=== PATIENT | male | born 1945 | race Caucasian/White ===

== ENCOUNTER 2023-08-31 12:26 | Inpatient (IN) ==
[2023-08-31] MEDS: DILTIAZEM 25 MG/5 ML VIAL IV ONE ×2 (13:03→15:50)
[2023-08-31] MEDS: FUROSEMIDE 40 MG/4 ML VIAL IV ONE (13:04)
[2023-08-31 13:30] LABS: Hematocrit 45.1 % (40.1-51.0); Hemoglobin 14.6 g/dL (13.7-17.5); Mean Cell Volume 92.4 fL (80.0-100.0); Mean Corpuscular HGB Conc 32.4 g/dL (31.0-36.0); Mean Platelet Volume 11.3 fL (8.8-12.5); Platelet Count 196 K/mcL (140-440); RBC 4.88 M/mcL (4.63-6.08); Red Cell Distribution Width 13.9 % (11.5-14.5); WBC 10.2 K/mcL (4.5-11.0)
[2023-08-31 13:31] LABS: ALT/SGPT 62 U/L (<40); AST/SGOT 59 U/L (<40); Albumin 3.9 gm/dL (3.2-5.2); Albumin/Globulin Ratio 1.5 (1.0-2.3); Alkaline Phosphatase 114 U/L (39-117); Bilirubin,Total 1.4 mg/dL (0.1-1.0); Blood Urea Nitrogen 26 mg/dL (8-23); Calcium 8.9 mg/dL (8.6-10.4); Carbon Dioxide 20 mmol/L (22-30); Chloride 99 mmol/L (96-108); Globulin 2.6 gm/dL (2.2-3.7); Glomerular Filtration Rate 58; Glucose 131 mg/dL (70-105)
[2023-08-31 13:58] LABS: Eosinophils % (Manual) 1 % (0-7); Lymphocytes % 14 % (15-49); Monocytes % (Manual) 9 % (1-12); Platelet Estimate NORMAL (Normal); RBC Morphology NORMAL (Normal); Reactive Lymphocytes 3 % (0-2); Segmented Neutrophils % 73 % (38-78)
[2023-08-31] MEDS ORDERED: ONDANSETRON 4 MG/2 ML VIAL IV PRN (18:56)
[2023-08-31] MEDS ORDERED: POTASSIUM CHLORIDE 20 MEQ TABLET PO PRN (18:56)
[2023-08-31] MEDS ORDERED: IPRATROPIUM/ALBUTEROL 3 ML AMPUL.NEB NEB PRN (18:56)
[2023-08-31] MEDS: METOPROLOL TARTRATE 5 MG/5 ML VIAL IV PRN (19:14)
[2023-08-31] MEDS: METOLAZONE 2.5 MG TABLET PO ONE (19:29)
[2023-08-31] MEDS: DILTIAZEM 120 MG CAP.XL.24H PO SCH (19:29)
[2023-08-31] MEDS: DOCUSATE SODIUM 100 MG CAPSULE PO SCH (20:05)
[2023-08-31] MEDS: FUROSEMIDE 40 MG/4 ML VIAL IV SCH (20:05)
[2023-08-31] MEDS: METOPROLOL TARTRATE 50 MG TABLET PO SCH (20:05)
[2023-08-31] MEDS: 0.9 % SODIUM CHLORIDE 250 ML IV PRN (20:56)
[2023-08-31] MEDS: ESMOLOL 2,500 MG in PREMIX 1 BAG IV PRN (20:56)
[2023-08-31] MEDS: ESMOLOL 250 ML IV ONE (20:57)
[2023-09-01] MEDS: ESMOLOL 250 ML IV ONE ×3 (00:30→10:27)
[2023-09-01] MEDS: PREMIX 2 BAG IV ONE (04:56)
[2023-09-01] MEDS: PANTOPRAZOLE 40 MG PACKET PO SCH (08:34)
[2023-09-01] MEDS: APIXABAN 5 MG TABLET PO SCH (08:34)
[2023-09-01] MEDS ORDERED: ENOXAPARIN 40 MG/0.4 ML SYRINGE SQ SCH (09:00)
[2023-09-01 09:33] LABS: ALT/SGPT 49 U/L (<40); Albumin 3.3 gm/dL (3.2-5.2); Albumin/Globulin Ratio 1.4 (1.0-2.3); Alkaline Phosphatase 97 U/L (39-117); Bilirubin,Total 4.3 mg/dL (0.1-1.0); Blood Urea Nitrogen 28 mg/dL (8-23); Calcium 8.6 mg/dL (8.6-10.4); Carbon Dioxide 24 mmol/L (22-30); Chloride 97 mmol/L (96-108); Globulin 2.4 gm/dL (2.2-3.7); Glomerular Filtration Rate 58; Glucose 156 mg/dL (70-105); Phosphorous 4.1 mg/dL (2.5-4.5); Triglycerides 102 mg/dL (<150); Uric Acid 11.2 mg/dL (2.5-8.0)
[2023-09-01] MEDS: AMIODARONE 150 MG in DEXTROSE 5% IN WATER 50 ML IV ONE (10:26)
[2023-09-01] MEDS: ALBUMIN HUMAN 12.5 GM/50 ML VIAL IV ONE (13:29)
[2023-09-01] MEDS: TAMSULOSIN 0.4 MG CAPSULE PO SCH (20:18)
[2023-09-02 06:29] LABS: ALT/SGPT 39 U/L (<40); AST/SGOT 56 U/L (<40); Albumin 3.1 gm/dL (3.2-5.2); Albumin/Globulin Ratio 1.4 (1.0-2.3); Alkaline Phosphatase 91 U/L (39-117); Bilirubin,Direct 1.2 mg/dL (<0.3); Bilirubin,Total 2.3 mg/dL (0.1-1.0); Blood Urea Nitrogen 38 mg/dL (8-23); Calcium 8.2 mg/dL (8.6-10.4); Carbon Dioxide 26 mmol/L (22-30); Chloride 94 mmol/L (96-108); Globulin 2.2 gm/dL (2.2-3.7); Glomerular Filtration Rate 33; Glucose 119 mg/dL (70-105); Lactate Dehydrogenase 652 U/L (135-225); Phosphorous 4.1 mg/dL (2.5-4.5); Triglycerides 86 mg/dL (<150); Uric Acid 12.6 mg/dL (2.5-8.0)
[2023-09-02] MEDS: POTASSIUM CHLORIDE 20 MEQ TABLET PO PRN (08:24)
[2023-09-02] MEDS: AMIODARONE 360 MG in PREMIX 1 BAG IV SCH ×2 (08:55→14:39)
[2023-09-02] MEDS: AMIODARONE 360 MG/200 ML BAG IV ONE ×2 (08:55→14:39)
[2023-09-02] MEDS: MILRINONE LACTATE/D5W 20 MG in PREMIX 1 BAG IV SCH ×2 (10:06→11:01)
[2023-09-02] MEDS: MILRINONE LACTATE/D5W 100 ML IV ONE (10:08)
[2023-09-02] MEDS: ALBUMIN HUMAN 12.5 GM/50 ML VIAL IV SCH (11:00)
[2023-09-02] MEDS: DIGOXIN 500 MCG/2 ML AMPUL IV ONE ×2 (17:25→23:33)
[2023-09-02] MEDS: POTASSIUM CHLORIDE 20 MEQ TABLET PO ONE ×2 (17:29→20:00)
[2023-09-02] MEDS: 0.9 % SODIUM CHLORIDE 10 ML SYRINGE IV SCH (19:15)
[2023-09-02] MEDS: FUROSEMIDE 100 MG/10 ML VIAL IV ONE (19:59)
[2023-09-02] MEDS: ALBUMIN HUMAN 12.5 GM/50 ML VIAL IV ONE (20:00)
[2023-09-03] MEDS: AMIODARONE 360 MG/200 ML BAG IV ONE (02:20)
[2023-09-03] MEDS: MILRINONE LACTATE/D5W 100 ML IV ONE (04:46)
[2023-09-03] MEDS: DIGOXIN 500 MCG/2 ML AMPUL IV ONE (05:53)
[2023-09-03 06:50] LABS: ALT/SGPT 47 U/L (<40); AST/SGOT 53 U/L (<40); Albumin 3.1 gm/dL (3.2-5.2); Albumin/Globulin Ratio 1.3 (1.0-2.3); Alkaline Phosphatase 100 U/L (39-117); Bilirubin,Direct 0.9 mg/dL (<0.3); Bilirubin,Total 1.6 mg/dL (0.1-1.0); Blood Urea Nitrogen 36 mg/dL (8-23); Calcium 8.3 mg/dL (8.6-10.4); Carbon Dioxide 33 mmol/L (22-30); Chloride 91 mmol/L (96-108); Globulin 2.3 gm/dL (2.2-3.7); Glomerular Filtration Rate 38; Glucose 132 mg/dL (70-105); Lactate Dehydrogenase 507 U/L (135-225); Phosphorous 3.7 mg/dL (2.5-4.5); Triglycerides 87 mg/dL (<150); Uric Acid 13.9 mg/dL (2.5-8.0)
[2023-09-03] MEDS: FUROSEMIDE 40 MG/4 ML VIAL IV SCH (07:43)
[2023-09-03] MEDS: ATORVASTATIN 40 MG TABLET PO SCH (08:35)
[2023-09-03] MEDS: FUROSEMIDE 40 MG/4 ML VIAL IV ONE (08:35)
[2023-09-03] MEDS: ALBUMIN HUMAN 12.5 GM/50 ML VIAL IV ONE (08:35)
[2023-09-03] MEDS: POTASSIUM CHLORIDE 40 MEQ in DEXTROSE 5% IN WATER 500 ML IV PRN (09:00)
[2023-09-03 10:33] LABS: Basophils # (Auto) 0.02 K/mcL (0.00-0.30); Basophils % (Auto) 0.2 % (0.0-2.0); Eosinophils # (Auto) 0.02 K/mcL (0.00-0.70); Eosinophils % (Auto) 0.2 % (0.0-7.0); Hematocrit 41.9 % (40.1-51.0); Lymphocytes # (Auto) 1.18 K/mcL (1.50-4.80); Lymphocytes % (Auto) 11.1 % (15.5-49.0); Mean Corpuscular HGB Conc 33.4 g/dL (31.0-36.0); Mean Platelet Volume 11.8 fL (8.8-12.5); Monocytes # (Auto) 1.44 K/mcL (0.10-0.90); Monocytes % (Auto) 13.6 % (1.0-12.0); Neutrophils % (Auto) 74.5 % (38.0-78.0); Platelet Count 167 K/mcL (140-440); RBC 4.71 M/mcL (4.63-6.08); WBC 10.6 K/mcL (4.5-11.0)
[2023-09-03 13:43] LABS: Appearance,Urine Clear (Clear); Bilirubin,Urine Negative (Negative); Color,Urine Yellow; Culture Indicated,Urine No; Glucose,Urine (UA) Negative (Negative); Ketones,Urine Negative (Negative); Leukocyte Esterase,Urine Negative /uL (Negative); Nitrate,Urine Negative (Negative); PH,Urine 5.5 (5.0-9.0); Protein,Urine Negative (Negative); Urine Blood Large ery/mcL (Negative); Urine RBC 51 /hpf (0-3); Urine Squamous Epithelial Cell 0 /hpf (0-4); Urine WBC 0 /hpf (0-4); Urobilinogen,Urine Normal
[2023-09-03] MEDS: DIGOXIN 125 MCG TABLET PO SCH (13:56)
[2023-09-03] MEDS: METOPROLOL TARTRATE 25 MG TABLET PO ONE (14:30)
[2023-09-03] MEDS: AMIODARONE 150 MG in DEXTROSE 5% IN WATER 50 ML IV ONE (17:59)
[2023-09-03] MEDS: POTASSIUM CHLORIDE 20 MEQ TABLET PO ONE ×3 (19:27→22:09)
[2023-09-03] MEDS: POLYETHYLENE GLYCOL 3350 17 GM PACKET PO PRN (19:28)
[2023-09-03] MEDS: METOPROLOL TARTRATE 50 MG TABLET PO SCH (20:49)
[2023-09-03] MEDS: MAGNESIUM SULFATE 2 GM/50 ML BAG IV PRN (21:55)
[2023-09-03] MEDS: MAGNESIUM SULFATE 1 GM/100 ML BAG IV ONE (21:56)
[2023-09-03] MEDS: POTASSIUM CHLORIDE 20 MEQ in DEXTROSE 5% IN WATER 250 ML IV ONE (22:34)
[2023-09-03] MEDS: POTASSIUM CHLORIDE 20 MEQ/10 ML VIAL IV ONE (22:35)
[2023-09-04] MEDS: MILRINONE LACTATE/D5W 100 ML IV ONE (06:03)
[2023-09-04 06:38] LABS: ALT/SGPT 61 U/L (<40); AST/SGOT 67 U/L (<40); Albumin 3.1 gm/dL (3.2-5.2); Albumin/Globulin Ratio 1.3 (1.0-2.3); Alkaline Phosphatase 115 U/L (39-117); Bilirubin,Direct 1.3 mg/dL (<0.3); Bilirubin,Total 2.2 mg/dL (0.1-1.0); Blood Urea Nitrogen 30 mg/dL (8-23); Calcium 8.4 mg/dL (8.6-10.4); Carbon Dioxide 33 mmol/L (22-30); Chloride 89 mmol/L (96-108); Globulin 2.3 gm/dL (2.2-3.7); Glomerular Filtration Rate 53; Glucose 151 mg/dL (70-105); Lactate Dehydrogenase 442 U/L (135-225); Phosphorous 2.6 mg/dL (2.5-4.5); Triglycerides 81 mg/dL (<150); Uric Acid 13.4 mg/dL (2.5-8.0)
[2023-09-04 07:08] LABS: Digoxin 0.8 ng/mL
[2023-09-04] MEDS: ALBUMIN HUMAN 12.5 GM/50 ML VIAL IV ONE (07:40)
[2023-09-04] MEDS ORDERED: AMIODARONE 150 MG in DEXTROSE 5% IN WATER 50 ML IV PRN (10:17)
[2023-09-04] MEDS: AMIODARONE 150 MG in DEXTROSE 5% IN WATER 50 ML IV ONE (10:53)
[2023-09-04] MEDS: METOPROLOL TARTRATE 50 MG TABLET PO ONE ×2 (10:53→14:19)
[2023-09-04] MEDS: AMIODARONE 150 MG in DEXTROSE 5% IN WATER 50 ML IV PRN (16:17)
[2023-09-04] MEDS: METOPROLOL TARTRATE 50 MG TABLET PO SCH (20:30)
[2023-09-05 06:39] LABS: Digoxin 0.9 ng/mL
[2023-09-05 09:52] LABS: ALT/SGPT 53 U/L (<40); AST/SGOT 41 U/L (<40); Albumin 2.8 gm/dL (3.2-5.2); Albumin/Globulin Ratio 0.9 (1.0-2.3); Alkaline Phosphatase 119 U/L (39-117); Bilirubin,Direct 1.1 mg/dL (<0.3); Bilirubin,Total 2.3 mg/dL (0.1-1.0); Blood Urea Nitrogen 26 mg/dL (8-23); Calcium 8.8 mg/dL (8.6-10.4); Carbon Dioxide 33 mmol/L (22-30); Chloride 90 mmol/L (96-108); Globulin 3.1 gm/dL (2.2-3.7); Glomerular Filtration Rate 72; Glucose 114 mg/dL (70-105); Lactate Dehydrogenase 449 U/L (135-225); Phosphorous 2.6 mg/dL (2.5-4.5); Triglycerides 79 mg/dL (<150); Uric Acid 10.4 mg/dL (2.5-8.0)
[2023-09-05] MEDS: POTASSIUM CHLORIDE 20 MEQ TABLET PO SCH (10:26)
[2023-09-05] MEDS: SENNOSIDES 1 TABLET PO PRN (14:49)
[2023-09-05] MEDS: ACETAMINOPHEN 325 MG TABLET PO PRN (16:54)
[2023-09-05] MEDS: HYDROcodone/APAP 5/325MG TABLET PO PRN (20:59)
[2023-09-06 07:31] LABS: ALT/SGPT 84 U/L (<40); AST/SGOT 93 U/L (<40); Albumin 3.2 gm/dL (3.2-5.2); Albumin/Globulin Ratio 1.2 (1.0-2.3); Alkaline Phosphatase 129 U/L (39-117); Bilirubin,Direct 0.9 mg/dL (<0.3); Bilirubin,Total 1.8 mg/dL (0.1-1.0); Blood Urea Nitrogen 26 mg/dL (8-23); Calcium 9.2 mg/dL (8.6-10.4); Carbon Dioxide 33 mmol/L (22-30); Chloride 92 mmol/L (96-108); Globulin 2.7 gm/dL (2.2-3.7); Glomerular Filtration Rate 82; Glucose 122 mg/dL (70-105); Lactate Dehydrogenase 423 U/L (135-225); Phosphorous 2.1 mg/dL (2.5-4.5); Triglycerides 92 mg/dL (<150); Uric Acid 8.7 mg/dL (2.5-8.0)
[2023-09-06] MEDS: POTASSIUM CHLORIDE 20 MEQ TABLET PO SCH (10:18)
[2023-09-06] MEDS: FUROSEMIDE 20 MG TABLET PO SCH ×2 (12:18→13:17)
[2023-09-06] MEDS: LISINOPRIL 2.5 MG TABLET PO SCH (13:17)
[2023-09-07] MEDS: POTASSIUM CHLORIDE 20 MEQ TABLET PO SCH (07:29)
[2023-09-07 09:55] LABS: ALT/SGPT 105 U/L (<40); AST/SGOT 100 U/L (<40); Albumin 3.5 gm/dL (3.2-5.2); Albumin/Globulin Ratio 1.2 (1.0-2.3); Alkaline Phosphatase 158 U/L (39-117); Bilirubin,Total 2.1 mg/dL (0.1-1.0); Blood Urea Nitrogen 19 mg/dL (8-23); Calcium 9.1 mg/dL (8.6-10.4); Carbon Dioxide 31 mmol/L (22-30); Chloride 91 mmol/L (96-108); Glomerular Filtration Rate 82; Glucose 187 mg/dL (70-105); Lactate Dehydrogenase 421 U/L (135-225); Phosphorous 2.1 mg/dL (2.5-4.5); Triglycerides 99 mg/dL (<150); Uric Acid 7.2 mg/dL (2.5-8.0)
[2023-09-08 06:45] LABS: ALT/SGPT 115 U/L (<40); AST/SGOT 103 U/L (<40); Albumin 3.5 gm/dL (3.2-5.2); Albumin/Globulin Ratio 1.2 (1.0-2.3); Alkaline Phosphatase 162 U/L (39-117); Bilirubin,Total 2.1 mg/dL (0.1-1.0); Blood Urea Nitrogen 20 mg/dL (8-23); Carbon Dioxide 29 mmol/L (22-30); Chloride 92 mmol/L (96-108); Globulin 2.9 gm/dL (2.2-3.7); Glomerular Filtration Rate 86; Glucose 105 mg/dL (70-105); Lactate Dehydrogenase 472 U/L (135-225); Phosphorous 2.7 mg/dL (2.5-4.5); Triglycerides 90 mg/dL (<150); Uric Acid 6.8 mg/dL (2.5-8.0)
[2023-09-08 08:01] VITALS: TEMP 97.9
[2023-09-08] MEDS: LISINOPRIL 2.5 MG TABLET PO SCH (08:04)
[2023-09-08] MEDS: FUROSEMIDE 20 MG TABLET PO SCH (08:04)
[2023-09-08 10:32] VITALS: O2SAT 95
== END 2023-09-08 12:05 | DRG 291 ==
LOC: ED 12:26 → ICU 18:54
PROVIDERS: ADMIT Internal Medicine; ATTEND Internal Medicine

== ENCOUNTER 2024-06-22 21:37 | Inpatient (IN) ==
[2024-06-22 23:06] LABS: Basophils # (Auto) 0.03 K/mcL (0.00-0.30); Basophils % (Auto) 0.4 % (0.0-2.0); Eosinophils # (Auto) 0 K/mcL (0.00-0.70); Eosinophils % (Auto) 0 % (0.0-7.0); Hematocrit 45.4 % (40.1-51.0); Hemoglobin 14.6 g/dL (13.7-17.5); Lymphocytes # (Auto) 0.98 K/mcL (1.50-4.80); Lymphocytes % (Auto) 12.9 % (15.5-49.0); Mean Cell Volume 95.2 fL (80.0-100.0); Mean Corpuscular HGB Conc 32.2 g/dL (31.0-36.0); Mean Platelet Volume 10.9 fL (8.8-12.5); Neutrophils % (Auto) 65.6 % (38.0-78.0); Platelet Count 158 K/mcL (140-440); RBC 4.77 M/mcL (4.63-6.08); Red Cell Distribution Width 13.9 % (11.5-14.5); WBC 7.6 K/mcL (4.5-11.0)
[2024-06-22 23:10] LABS: ALT/SGPT 34 U/L (<40); AST/SGOT 48 U/L (<40); Albumin 3.6 gm/dL (3.2-5.2); Albumin/Globulin Ratio 1.2 (1.0-2.3); Alkaline Phosphatase 83 U/L (39-117); Bilirubin,Total 0.6 mg/dL (0.1-1.0); Blood Urea Nitrogen 23 mg/dL (8-23); Calcium 8.2 mg/dL (8.6-10.4); Carbon Dioxide 21 mmol/L (22-30); Chloride 103 mmol/L (96-108); Globulin 2.9 gm/dL (2.2-3.7); Glomerular Filtration Rate 64; Glucose 159 mg/dL (70-105); Potassium 3.7 mmol/L (3.3-5.1); Sodium 137 mmol/L (133-145)
[2024-06-23 03:05] LABS: Appearance,Urine HAZY (Clear); Bilirubin,Urine Negative (Negative); Color,Urine Yellow; Glucose,Urine (UA) Negative (Negative); Ketones,Urine Negative (Negative); Leukocyte Esterase,Urine Negative /uL (Negative); Mucus,Urine FEW /hpf; Nitrate,Urine Negative (Negative); Protein,Urine 30 mg/dL (Negative); Specific Gravity,Urine 1.021 (1.000-1.035); Urine Blood Negative (Negative); Urine Hyaline Cast 15 /lph (0-2); Urine RBC 1 /hpf (0-3); Urine Squamous Epithelial Cell 0 /hpf (0-4); Urine Transitional Epi Cells < 1 /hpf (0-2); Urine WBC 5 /hpf (0-4)
[2024-06-23] MEDS ORDERED: KETOROLAC 30 MG/ML VIAL IV PRN (03:26)
[2024-06-23] MEDS ORDERED: ONDANSETRON 4 MG/2 ML VIAL IV PRN ×2 (03:26→09:13)
[2024-06-23] MEDS: OSELTAMIVIR PHOSPHATE 75 MG CAPSULE PO ONE (04:00)
[2024-06-23] MEDS: 0.9 % SODIUM CHLORIDE 1,000 ML IV SCH ×2 (04:50→13:31)
[2024-06-23] MEDS: ACETAMINOPHEN 650 MG/65 ML BAG IV PRN (04:56)
[2024-06-23] MEDS: 0.9 % SODIUM CHLORIDE 10 ML SYRINGE IV SCH ×2 (07:25→14:26)
[2024-06-23] MEDS: ACETAMINOPHEN 1,000 MG/100 ML BAG IV ONE (07:25)
[2024-06-23] MEDS ORDERED: ALBUTEROL SULFATE 60 PUFF INHALER IH PRN (09:12)
[2024-06-23] MEDS ORDERED: LOPERAMIDE 2 MG CAPSULE PO PRN (09:12)
[2024-06-23] MEDS ORDERED: POLYETHYLENE GLYCOL 3350 17 GM PACKET PO PRN (09:12)
[2024-06-23] MEDS ORDERED: MAGNESIUM HYDROXIDE 30 ML ORAL.SUSP PO PRN (09:13)
[2024-06-23] MEDS ORDERED: HYDROcodone/APAP 5/325MG TABLET PO PRN (09:13)
[2024-06-23] MEDS: DOCUSATE SODIUM 100 MG CAPSULE PO SCH ×2 (09:44→20:29)
[2024-06-23] MEDS: METOPROLOL TARTRATE 50 MG TABLET PO SCH (10:52)
[2024-06-23] MEDS: APIXABAN 5 MG TABLET PO SCH (10:52)
[2024-06-23] MEDS: DIGOXIN 125 MCG TABLET PO SCH (13:31)
[2024-06-23] MEDS: SENNOSIDES 1 TABLET PO SCH (20:29)
[2024-06-23] MEDS: ATORVASTATIN 40 MG TABLET PO SCH (20:30)
[2024-06-23] MEDS: OSELTAMIVIR PHOSPHATE 75 MG CAPSULE PO SCH (20:30)
[2024-06-23] MEDS: TAMSULOSIN 0.4 MG CAPSULE PO SCH (20:30)
[2024-06-23] MEDS ORDERED: APIXABAN 5 MG TABLET PO SCH (21:00)
[2024-06-23] MEDS ORDERED: SENNOSIDES 1 TABLET PO SCH (21:00)
[2024-06-23] MEDS ORDERED: METOPROLOL TARTRATE 50 MG TABLET PO SCH (21:00)
[2024-06-24] MEDS: PANTOPRAZOLE 40 MG TABLET PO SCH (08:35)
[2024-06-24] MEDS: POTASSIUM CHLORIDE 10 MEQ TABLET PO SCH (08:35)
[2024-06-25] MEDS: METOPROLOL TARTRATE 50 MG TABLET PO ONE (08:33)
[2024-06-26] MEDS: SPIRONOLACTONE 25 MG TABLET PO SCH (08:28)
[2024-06-26] MEDS: LISINOPRIL 10 MG TABLET PO SCH (08:29)
[2024-06-26] MEDS: SENNOSIDES 1 TABLET PO PRN (21:01)
[2024-06-28] MEDS: ACETAMINOPHEN 500 MG TABLET PO PRN (08:43)
[2024-06-28 11:30] VITALS: TEMP 98.7; O2SAT 95
== END 2024-06-28 11:40 | DRG 152 ==
LOC: ED 21:37 → ICU 06-23 04:10 → MEDSUR 06-25 11:25
PROVIDERS: ADMIT Internal Medicine; ATTEND Internal Medicine